=== PATIENT | female | born 1955 | race Caucasian/White ===

== ENCOUNTER 2019-04-06 10:04 | Emergency (ER) | payer BC ==
[2019-04-06 10:58] VITALS: BP 162/84
--- NOTE | 2019-04-06 11:35 | UC ---
Hand/Wrist HPI - HPI Summary HPI Summary: Pt presents with c/o spontaneous onset of left thumb swelling along the metacarpal. Pt denies injury or repetitive use. Pt was bit by her dog 1 week ago and puncture wound is healing without increased redness, tenderness or purulent discharge. - History Of Current Complaint Chief Complaint: UCUpperExtremity Stated Complaint: L HAND COMP Time Seen by Provider: 04/06/19 11:07 Hx Obtained From: Patient ?: No Onset/Duration: Sudden Onset, Lasting Days, Still Present Severity Initially: Moderate Severity Currently: Moderate Pain Intensity: 6 Character Of Pain: Dull, Aching Aggravating Factor(s): Movement Alleviating Factor(s): Rest Associated Signs And Symptoms: Positive: Swelling Related History: Dominant Hand Right - Risk Factors Compartment Syndrome Risk Factors: Pain - Allergies/Home Medications Allergies/Adverse Reactions: Allergies Allergy/AdvReac Type Severity Reaction Status Date / Time No Known Allergies Allergy Verified 04/06/19 10:58 Home Medications: Home Medications NK [No Home Medications Reported] 04/06/19 [History Confirmed 04/06/19] PMH/Surg Hx/FS Hx/Imm Hx Previously Healthy: Yes - Surgical History Surgical History: Yes Surgery Procedure, Year, and Place: APPENDECTOMY - Family History Known Family History: Positive: Cardiac Disease - Social History Occupation: Retired Lives: With Family Alcohol Use: None Substance Use Type: None Smoking Status (MU): Heavy Every Day Tobacco Smoker Type: Cigarettes Amount Used/How Often: 1 pack daily Have You Smoked in the Last Year: Yes - Immunization History Most Recent Influenza Vaccination: NOT THIS SEASON Vaccination Up to Date: Yes Review of Systems All Other Systems Reviewed And Are Negative: Yes Constitutional: Positive: Negative Skin: Positive: Other - healing woudn left hand on dorsal aspect of base of left thumb Eyes: Positive: Negative ENT: Positive: Negative Respiratory: Positive: Negative Cardiovascular: Positive: Negative Gastrointestinal: Positive: Negative Genitourinary: Positive: Negative Motor: Positive: Decreased ROM - pain with ROM left thumb Neurovascular: Positive: Negative Musculoskeletal: Positive: Arthralgia, Decreased ROM - pain with ROM, Edema, Myalgia Neurological: Positive: Negative Psychological: Positive: Negative Is Patient Immunocompromised?: No Physical Exam Triage Information Reviewed: Yes Appearance: Pain Distress - with ROM Vital Signs: Initial Vital Signs Temp 98.4 F 04/06/19 10:53 Pulse 85 04/06/19 10:53 Resp 16 04/06/19 10:53 BP 162/84 04/06/19 10:53 Pulse Ox 100 04/06/19 10:53 Vital Signs Reviewed: Yes Eye Exam: Normal ENT: Positive: Hearing grossly normal Dental Exam: Normal Neck exam: Normal Respiratory Exam: Normal Respiratory: Positive: No respiratory distress Musculoskeletal Exam: Normal Neurological Exam: Normal Psychological Exam: Normal Skin Exam: Other - healed small, dired scab base of dorsal aspect left thumb. No erythema, no discharge Diagnostics - Radiology No standard instances Radiology Interpretation Completed By: Radiologist - negative for fracture, fb or infection Hand/Wrist Course/Dx - Differential Dx/Diagnosis Differential Diagnosis/HQI/PQRI: Foreign Body, Fracture, Infection, Puncture Wound Provider Diagnosis: Localized swelling of left thumb Discharge ED - Sign-Out/Discharge Documenting (check all that apply): Patient Departure All imaging exams completed and their final reports reviewed: Yes - Discharge Plan Condition: Stable Disposition: HOME Patient Education Materials: Swollen Joint (ED) Referrals: [facility] [Outside] - If Needed Nilo Boyer MD [Medical Doctor] - If Needed Marshall Branch MD [Medical Doctor] - If Needed No Primary Care Phys,NOPCP [Primary Care Provider] - - Billing Disposition and Condition Condition: STABLE Disposition: Home
== END 2019-04-06 11:49 | disposition home or self-care (01) ==
LOC: UCCORT 10:04
DX: M79.89 Other specified soft tissue disorders (principal); F17.210 Nicotine dependence, cigarettes, uncomplicated
CPT/HCPCS: 99201; G0463

== ENCOUNTER 2020-12-01 10:29 | Inpatient (IN) ==
[~2020-12-01 10:29] MED LIST: Buffered Lidocaine 1% SYRIN 1 ml INTRADERM ONE; Lactated Ringers 1000 ml BAG 1,000 ML IV SCH
[2020-12-01] MEDS ORDERED: ceFAZolin 2 GM in NS PREMIX 2 GM/100 ML BAG IVPB ONE (11:32)
[2020-12-01] MEDS ORDERED: Ketamine HCL 50 mg/ml 10 ml VIAL (500 MG) ONE (12:25)
[2020-12-01] MEDS ORDERED: fentaNYL 100 mcg/2 ml 50 MCG/ML VIAL ONE (12:25)
[2020-12-01] MEDS ORDERED: Lidocaine 2% PF 5 ML VIAL ONE (12:26)
[2020-12-01] MEDS ORDERED: Phenylephrine IV 10 MG/ML 1 ml VIAL ONE (12:26)
[2020-12-01] MEDS ORDERED: Midazolam 2 mg/2 ml VIAL 1 mg/ml 2 ml VIAL (2 mg) ONE (12:32)
[2020-12-01] MEDS ORDERED: Bupivacaine 0.5% SDV PF 30ML VIAL ONE (12:32)
[2020-12-01] MEDS ORDERED: ROPIVACAINE 5 MG/ML 30 ML BTL (0.5%) ONE (12:34)
[2020-12-01] MEDS ORDERED: EPHEDrine (Pressors) 50 MG/ML VIAL ONE (13:35)
[2020-12-01] MEDS ORDERED: Dexamethasone IV 4 MG/ML VIAL 1 ml VIAL ONE (14:03)
[2020-12-01] MEDS ORDERED: Ondansetron 4 mg VIAL 2 MG/ML 2 ml VIAL ONE (14:03)
[2020-12-01] MEDS ORDERED: Propofol 10 MG/ML 20 ML BTL ONE (15:08)
[2020-12-01] MEDS ORDERED: diPHENhydraMINE 25 mg TAB PO PRN (15:40)
[2020-12-01] MEDS ORDERED: Lactulose 30 ml UDC PO PRN (15:40)
[2020-12-01] MEDS ORDERED: Ondansetron 4 mg VIAL 2 MG/ML 2 ml VIAL IV PRN (15:40)
[2020-12-01] MEDS ORDERED: diPHENhydraMINE IV 50 MG/ML 1 ml VIAL (BENADRYL) IV PRN (15:40)
[2020-12-01] MEDS ORDERED: Ondansetron ODT 4 mg TAB 4 MG TAB PO PRN (15:40)
[2020-12-01] MEDS ORDERED: Magnesium Hydroxide LIQ 30 ML UDC PO PRN (15:40)
[2020-12-01] MEDS ORDERED: Morphine 2 MG/ML SYRINGE IV PRN (15:40)
[2020-12-01] MEDS: Lactated Ringers 1000 ml BAG 1,000 ML IV SCH (16:53)
[2020-12-01] MEDS: Magnesium Hydroxide LIQ 30 ML UDC PO SCH (21:58)
[2020-12-01] MEDS: ceFAZolin 1 GM ADVAN 1 GM in NS 0.9% 50 ML 50 ML IVPB SCH (23:18)
[2020-12-02] MEDS: Lactated Ringers 1000 ml BAG 1,000 ML IV SCH (03:45)
[2020-12-02] MEDS: ceFAZolin 1 GM ADVAN 1 GM in NS 0.9% 50 ML 50 ML IVPB SCH ×2 (05:46→12:28)
[2020-12-02 06:20] LABS: Hematocrit 36 % (35-47); Hemoglobin 12.1 g/dL (12.0-16.0); Mean Platelet Volume 8.7 fL (7.4-10.4); Platelet Count 217 10^3/uL (150-450)
[2020-12-02 06:38] LABS: Calcium 8.7 mg/dL (8.6-10.3); EGFR African American 68.1 (>60); EGFR Non-African American 56.3 (>60); Potassium 4.3 mmol/L (3.5-5.0)
[2020-12-02] MEDS: Magnesium Hydroxide LIQ 30 ML UDC PO SCH (08:46)
[2020-12-02] MEDS ORDERED: Vitamin THERAPEUTIC TAB PO SCH (09:00)
[2020-12-02 12:29] VITALS: BP 102/59
== END 2020-12-02 13:10 | disposition home or self-care (01) | DRG 470 ==
LOC: AA 10:29 → SSU 17:05
PROVIDERS: ADMIT Orthopaedic Surgery Adult Reconstructive Orthopaedic Surgery; ATTEND Orthopaedic Surgery Adult Reconstructive Orthopaedic Surgery